=== PATIENT | male | born 1970 | race Asian ===

== ENCOUNTER 2017-07-26 01:26 | Emergency (ER) | payer BC ==
[~2017-07-26] VITALS: Ht 175.3 cm; Wt 75.7 kg
[2017-07-26 01:30] VITALS: Ht 175.3 cm; Wt 75.7 kg
[2017-07-26 02:51] VITALS: BP 123/79
== END 2017-07-26 02:51 | disposition home or self-care (01) ==
LOC: ED 01:26
DX: T63.481A Toxic effect of venom of other arthropod, accidental (unintentional), initial encounter (principal); Y92.89 Other specified places as the place of occurrence of the external cause
CPT/HCPCS: 86788; 86789; J2930

== ENCOUNTER 2017-07-27 01:05 | Emergency (ER) | payer BC ==
[~2017-07-27] VITALS: Ht 175.3 cm; Wt 76.7 kg
[2017-07-27 01:09] VITALS: Ht 175.3 cm; Wt 76.7 kg
[2017-07-27 02:32] LABS: BASOPHIL % 0.3 % (0-2); PLATELET COUNT 332 x10^3mcL (130-400); RED CELL DISTRIBUTION WIDTH 12.4 % (11.5-14.5)
[2017-07-27 02:39] LABS: CALCIUM 8.4 mg/dL (8.5-10.1); CARBON DIOXIDE 30.6 mmol/L (21-32); CHLORIDE SERUM 103 mmol/L (98-107); GFR1 > 60 mL/min; GLUCOSE SERUM 150 mg/dL (74-106); POTASSIUM SERUM 3.8 mmol/L (3.5-5.1); SODIUM SERUM 136 mmol/L (136-145)
[2017-07-27 02:44] LABS: ALKALINE PHOSPHATASE 83 U/L (46-116); ALT/SGPT 52 U/L (16-63); AST/SGOT 31 U/L (15-37); BILIRUBIN TOTAL 0.36 mg/dL (0.20-1.00); TOTAL PROTEIN, SERUM 6.8 g/dL (6.4-8.2)
[2017-07-27 03:44] VITALS: BP 117/71
== END 2017-07-27 04:47 | disposition home or self-care (01) ==
LOC: ED 01:05
PROVIDERS: Emergency Medicine
DX: R21 Rash and other nonspecific skin eruption (principal)
CPT/HCPCS: J1200; J2930; J3490; J7030

== ENCOUNTER 2017-07-28 16:42 | Emergency (ER) | payer BC ==
[~2017-07-28] VITALS: Ht 175.3 cm; Wt 76.2 kg
[2017-07-28 16:59] VITALS: Ht 175.3 cm; Wt 76.2 kg
[2017-07-28 18:10] LABS: microscopic required? NO
[2017-07-28 18:17] LABS: UA SPECIFIC GRAVITY <=1.005 (1.005-1.035); urine erythrocyte NEGATIVE (NEGATIVE)
[2017-07-28 18:21] LABS: PLATELET COUNT 261 x10^3mcL (130-400); RED CELL DISTRIBUTION WIDTH 13.2 % (11.5-14.5)
[2017-07-28 18:22] LABS: BASOPHIL % 0 % (0-2)
[2017-07-28 18:28] LABS: CALCIUM 8.3 mg/dL (8.5-10.1); CARBON DIOXIDE 30.5 mmol/L (21-32); CHLORIDE SERUM 103 mmol/L (98-107); GFR1 > 60 mL/min; GLUCOSE SERUM 151 mg/dL (74-106); POTASSIUM SERUM 3.9 mmol/L (3.5-5.1); SODIUM SERUM 138 mmol/L (136-145)
[2017-07-28 18:33] LABS: ALKALINE PHOSPHATASE 76 U/L (46-116); ALT/SGPT 78 U/L (16-63); AST/SGOT 62 U/L (15-37); BILIRUBIN TOTAL 0.47 mg/dL (0.20-1.00); TOTAL PROTEIN, SERUM 7.1 g/dL (6.4-8.2)
[2017-07-28 19:26] LABS: ERYTHROCYTE SED RATE 37 mm/hr (0-15)
[2017-07-28 20:18] VITALS: BP 121/74
== END 2017-07-28 20:19 | disposition home or self-care (01) ==
LOC: ED 16:42
PROVIDERS: Emergency Medicine
DX: I00 Rheumatic fever without heart involvement (principal); L51.9 Erythema multiforme, unspecified
CPT/HCPCS: 83880; 86618; J0696; J1200; J1885; J2930